=== PATIENT | female | born 1950 | race Caucasian/White ===

== ENCOUNTER 2022-02-25 10:15 | Outpatient (CLI) | payer MEDICARE, BC ==
[2022-02-25] MEDS ORDERED: FENO145T25 PO (11:27)
[2022-02-25] MEDS ORDERED: CALC250T2 PO (11:27)
[2022-02-25] MEDS ORDERED: CART1TAB5 PO (11:27)
[2022-02-25] MEDS ORDERED: AREDS 2 EACHEYE (11:27)
[2022-02-25] MEDS ORDERED: CETI-194 PO (11:27)
[2022-02-25] MEDS ORDERED: CLON0.2T PO (11:27)
[2022-02-25] MEDS ORDERED: KRIL500C PO (11:27)
[2022-02-25] MEDS ORDERED: AMLODIPINE/BENAZ PO (11:27)
[2022-02-25] MEDS ORDERED: SERT-434 PO (11:27)
[2022-02-25] MEDS ORDERED: MULT-969 PO (11:27)
[2022-02-25 12:32] LABS: HEMATOCRIT 45.8 % (35.0-45.0); HEMOGLOBIN 15.5 g/dl (12.0-16.0); MEAN CORPUSCULAR HEMOGLOBIN 29.4 PG (27.0-31.0); MEAN CORPUSCULAR HGB CONC 33.8 g/dL (33.0-36.5); MEAN CORPUSCULAR VOLUME 86.9 FL (78-98); MEAN PLATELET VOLUME 9.1 FL (7.4-10.4); NEUTROPHILS % (AUTO) 73.7 % (42-75); PLATELET COUNT 253 X10'3 (140-440); RED BLOOD COUNT 5.27 X10'6 (4.20-5.60); RED CELL DISTRIBUTION WIDTH 13.4 % (11.5-14.5); WHITE BLOOD COUNT 6.3 X10'3 (4.5-11.0)
[2022-02-25 12:33] LABS: BASOPHILS % (AUTO) 0.6 % (0-1); EOSINOPHILS # (AUTO) 0.1 X10'3 (0-0.9); EOSINOPHILS % (AUTO) 0.9 % (0-6); LYMPHOCYTES # (AUTO) 1.2 X10'3 (1.1-4.8); LYMPHOCYTES % (AUTO) 19.2 % (21-51); MONOCYTES # (AUTO) 0.4 X10'3 (0-0.9); MONOCYTES % (AUTO) 5.6 % (2-12); NEUTROPHILS # (AUTO) 4.7 X10'3 (1.8-7.7)
[2022-02-25 12:38] LABS: APTT 27 SECONDS (22-32)
[2022-02-25 12:38] LABS: CLARITY,URINE CLEAR (Clear); COLOR,URINE YELLOW (Yellow); GLUCOSE, URINE NEGATIVE (Neg); KETONES,URINE NEGATIVE (Neg); LEUKOCYTE ESTERASE ,URINE NEGATIVE (Neg); NITRITES, URINE NEGATIVE (Neg); OCCULT BLOOD,URINE NEGATIVE (Neg); PROTEIN,URINE NEGATIVE (Neg); UROBILINOGEN,URINE 0.2 E.U/dL (0.2-1.0)
[2022-02-25 12:43] LABS: UA COLLECTION TYPE CLN CATCH MIDSTREAM
[2022-02-25 13:25] LABS: ALANINE AMINOTRANSFERASE 22 U/L (12-78); ALBUMIN 4.3 G/DL (3.4-5.0); ALBUMIN/GLOBULIN RATIO 1.3 (1.1-1.5); ALKALINE PHOSPHATASE 54 IU/L (46-116); ANION GAP 14 (8-16); ASPARTATE AMINO TRANSFERASE 22 U/L (10-37); BILIRUBIN,TOTAL 0.4 MG/DL (0.1-1.0); BLOOD UREA NITROGEN 24 MG/DL (7-18); BUN/CREATININE RATIO 26.4 (6.6-38.0); CALCIUM 9.5 MG/DL (8.5-10.1); CHLORIDE 102 MMOL/L (99-107); CHOL/HDL RATIO 3.8 (0.00-4.99); CHOLESTEROL 225 MG/DL (0-200); CREATININE 0.91 MG/DL (0.40-0.90); GLUCOSE 108 MG/DL (70-104); HDL CHOLESTEROL 59 MG/DL (35-60); LDL CHOLESTEROL 141 MG/DL (50-100); POTASSIUM 3.9 MMOL/L (3.5-5.1); SODIUM 141 MMOL/L (135-145); TOTAL CARBON DIOXIDE 25.4 MMOL/L (24-32); TOTAL PROTEIN 7.6 G/DL (6.4-8.2); TRIGLYCERIDES 150 MG/DL (20-135); eGFR 61 ML/MIN
== END 2022-02-25 23:59 | disposition home or self-care (01) ==
LOC: LAB 10:15
PROVIDERS: ATTEND Acupuncturist
DX: I10 Essential (primary) hypertension (principal); E78.5 Hyperlipidemia, unspecified; E03.9 Hypothyroidism, unspecified; Z79.899 Other long term (current) drug therapy
CPT/HCPCS: 36415; 80053; 80061; 81003; 84443; 85025; 85610; 85730